=== PATIENT | male | born 1965 | race American Indian/Alaskan Native ===

== ENCOUNTER → 2017-09-29 12:42 | Outpatient (CLI) | payer MEDICARE, MEDICAID, SELFPAY ==
--- NOTE | 2017-09-29 12:45 | DI.NM.S_ITS ---
PROCEDURE: NM PARATHYROID RADIOPHARMACEUTICAL: 26.0 mCi Tc-99m sestamibi IV. INDICATIONS: Suspect parathyroid adenoma TECHNIQUE: After intravenous administration of Tc-99m sestamibi, anterior planar images of the neck and mediastinum were obtained at approximately 10 minutes and 2-3 hours. SPECT images were acquired after the 10 minute planar images. COMPARISON: None. FINDINGS: On the early images, the right thyroid lobe is enlarged and demonstrates increased uptake. The left thyroid lobe is small. On delayed images, there is preferential tracer retention in the right thyroid bed. The SPECT images demonstrate increased activity in the right thyroid lobe which is enlarged. IMPRESSION: Enlarged right thyroid lobe with increased sestamibi uptake. Differential diagnoses include large thyroid adenoma versus parathyroid adenoma (both could be present and superimposed on each other). Recommend followup ultrasound for further evaluaiton. Also recommend correlation with serum calcium and parathyroid hormone levels. Dictated by: Roby Rosas M.D. on 09/29/2017 at 16:35 Transcribed by: GEORGIANA on 09/29/2017 at 16:38 Approved by: Roby Rosas M.D. on 09/29/2017 at 17:52
== END ==
PROVIDERS: Visit Provider Family Medicine
DX: E04.9 Nontoxic goiter, unspecified (principal)
CPT/HCPCS: 78070; A9500

== ENCOUNTER → 2018-03-10 14:04 | Outpatient (CLI) | payer MEDICARE, MEDICAID, SELFPAY ==
--- NOTE | 2018-03-10 | DI.RAD.S_ITS ---
PROCEDURE: XR CHEST 2V INDICATIONS: Cough TECHNIQUE: 2 views of the chest were acquired. COMPARISON: None. FINDINGS: Surgical changes and devices: None. Lungs and pleura: No pleural effusions or pneumothorax. Lungs are clear. Mediastinum: Mediastinal contours are normal. Heart size is normal. Bones and chest wall: No suspicious bony abnormalities. Soft tissues appear unremarkable. IMPRESSION: No acute cardiopulmonary findings. Dictated by: Pily Jackman M.D. on 03/10/2018 at 15:26 Approved by: Pily Jackman M.D. on 03/10/2018 at 15:27
== END ==
PROVIDERS: Visit Provider Family Medicine
DX: R05 Cough (principal)
CPT/HCPCS: 71046

== ENCOUNTER → 2019-04-19 12:39 | Outpatient (CLI) | payer MEDICARE, MEDICAID, SELFPAY ==
--- NOTE | 2019-04-19 | DI.US.S_ITS ---
PROCEDURE: US PERIPH VENOUS LOW EXTREM LT INDICATIONS: LEFT CALF PAIN TECHNIQUE: Real-time imaging, as well as color and pulse Doppler interrogation, were performed of the lower extremity deep veins from the inguinal ligament to the popliteal fossa. COMPARISON: None. FINDINGS: Partially occlusive thrombus can be seen within the popliteal vein. No findings of deep venous thrombosis can be seen. IMPRESSION: A small amount of partially occlusive deep venous thrombosis can be seen within the right popliteal vein, which is most likely related to chronic deep venous thrombosis. Note: Concordant preliminary findings given by the edger tailer upon the completion of the examination to Dr. Navarro at 1:10 PM [place] time on April 19, 2019. Dictated by: Shahbaz Oneal M.D. on 04/19/2019 at 14:23 Approved by: Shahbaz Oneal M.D. on 04/19/2019 at 14:25
== END ==
PROVIDERS: Visit Provider Family Medicine
DX: M79.662 Pain in left lower leg (principal); I82.432 Acute embolism and thrombosis of left popliteal vein
CPT/HCPCS: 93971

== ENCOUNTER → 2020-06-18 16:29 | Outpatient (CLI) | payer MEDICARE, MEDICAID, SELFPAY ==
--- NOTE | 2020-06-18 16:32 | DI.RAD.S_ITS ---
PROCEDURE: XR HIP W PEL IF DONE RT 2V INDICATIONS: HIP PAIN TECHNIQUE: AP pelvis and AP and frogleg lateral views of the right hip. COMPARISON: None. FINDINGS: Bones: No acute fractures or dislocations. Pelvic ring appears intact. No suspicious bony lesions. There is mild degenerative spurring of the lateral acetabula bilaterally. Soft tissues: The visualized bowel gas pattern is normal. No suspicious soft tissue calcifications. IMPRESSION: No acute osseous abnormality. If clinical suspicion and/or symptoms persist, additional imaging with repeat plain films, or advanced imaging (e.g. CT, MRI) may be helpful for further assessment. Dictated by: Isael Carmen M.D. on 06/18/2020 at 16:09 Approved by: Isael Carmen M.D. on 06/18/2020 at 16:11
== END ==
PROVIDERS: PCP Family Medicine; Referring Provider Family Medicine; Visit Provider Family Medicine
DX: M25.551 Pain in right hip (principal)
CPT/HCPCS: 73502